=== PATIENT | male | born 1960 | race Asian ===

== ENCOUNTER 2020-12-28 15:06 | Outpatient (REF) | payer SELFPAY ==
[2020-12-28 16:22] LABS: Abs Immature Grans 0.02 10^3/uL (0.0-0.06); Absolute Basophil Count 0.03 10^3/uL (0.0-0.2); Absolute Eosinophil Count 0.07 10^3/uL (0.0-0.7); Absolute Lymphocyte Count 0.87 10^3/uL (1.2-3.4); Absolute Monocyte Count 0.53 10^3/uL (0.1-0.8); Absolute Neutrophil Count 4.43 10^3/uL (1.2-6.7); Basophils % 0.5; Eosinophils % 1.2; HCT 39.8 % (40.0-50.0); HGB 13.5 g/dL (13.5-17.5); Immature Grans % 0.3; Lymphocytes % 14.6; MCH 31.8 pg (27.0-33.0); MCHC 33.9 % (32.0-36.0); MCV 93.9 fL (80-95); MPV 10.9 fL (8.0-11.0); Monocytes % 8.9; Neutrophils % 74.5; Nucleated RBC 0 %; Platelet Count 261 10^3/uL (130-400); RBC 4.24 10^6/uL (4.36-5.78); RDW 11.6 % (11.8-14.1); RDW-SD 39.8 fL; WBC 5.95 10^3/uL (4.4-10.8)
[2020-12-28 17:37] LABS: ALT 35 U/L (16-63); AST 23 U/L (15-37); Albumin 3.8 g/dL (3.4-5.0); Alkaline Phosphatase 89 U/L (46-116); Anion Gap 10.6 mmol/L (3-11); BUN 13 mg/dL (7-18); Bilirubin, Total 0.5 mg/dL (0.2-1.0); CO2 26.4 mmol/L (21.0-32.0); CREATININE 0.8 mg/dL (0.70-1.30); Calcium 8.7 mg/dL (8.5-10.1); Calculated LDL 116 mg/dL (<100); Chloride 95 mmol/L (98-107); Cholesterol 168 mg/dL (<200); Glucose 114 mg/dL (74-106); HDL Cholesterol 40 mg/dL (40-60); Potassium 5.5 mmol/L (3.5-5.1); Sodium 132 mmol/L (136-145); Total Protein 7.2 g/dL (6.4-8.2); Triglyceride 63 mg/dL (<150)
[2020-12-28 19:15] LABS: Hemoglobin A1C 5.7 % (<5.7)
[2020-12-29 17:45] LABS: PSA, Screening 0.3 ng/mL (0.0-3.5)
== END 2020-12-28 15:07 | disposition home or self-care (01) ==
LOC: NCHCN 15:06
PROVIDERS: Visit Provider Nurse Practitioner Family
DX: Z00.8 Encounter for other general examination (principal)
CPT/HCPCS: 80053; 80061; 84153; 83036; 85025

== ENCOUNTER 2022-11-23 10:46 | Outpatient (REF) | payer SELFPAY ==
[2022-11-23 12:55] LABS: Abs Immature Grans 0.02 10^3/uL (0.0-0.06); Absolute Eosinophil Count 0.23 10^3/uL (0.0-0.7); Absolute Lymphocyte Count 1.97 10^3/uL (1.2-3.4); Basophils % 1.7; HCT 42.2 % (40.0-50.0); HGB 14.3 g/dL (13.5-17.5); Immature Grans % 0.3; Lymphocytes % 33.8; MCH 31.6 pg (27.0-33.0); MCHC 33.9 % (32.0-36.0); MCV 93 fL (80-95); MPV 10.7 fL (8.0-11.0); Monocytes % 6.9; Neutrophils % 53.3; Platelet Count 264 10^3/uL (130-400); RBC 4.52 10^6/uL (4.36-5.78); RDW 12.6 % (11.8-14.1); RDW-SD 43.5 fL; WBC 5.82 10^3/uL (4.4-10.8)
[2022-11-23 13:15] LABS: Hemoglobin A1C 5.8 % (<5.7)
[2022-11-23 13:58] LABS: ALT 30 U/L (16-63); AST 20 U/L (15-37); Albumin 4.5 g/dL (3.4-5.0); Alkaline Phosphatase 64 U/L (46-116); Anion Gap 7.4 mmol/L (3-11); BUN 11 mg/dL (7-18); Bilirubin, Total 0.7 mg/dL (0.2-1.0); CO2 28.6 mmol/L (21.0-32.0); CREATININE 0.9 mg/dL (0.70-1.30); Calcium 9.5 mg/dL (8.5-10.1); Calculated LDL 155 mg/dL (<100); Chloride 102 mmol/L (98-107); Cholesterol 248 mg/dL (<200); Estimated GFR 97.17 (mL/min/1.73m2); Glucose 108 mg/dL (74-106); HDL Cholesterol 73 mg/dL (40-60); Potassium 4.6 mmol/L (3.5-5.1); Sodium 138 mmol/L (136-145); Total Protein 7.8 g/dL (6.4-8.2); Triglyceride 102 mg/dL (<150); Vitamin B12 572 pg/mL (193-986)
== END 2022-11-23 10:47 | disposition home or self-care (01) ==
LOC: LBN 10:46
PROVIDERS: Visit Provider Nurse Practitioner Family
DX: R73.9 Hyperglycemia, unspecified (principal)
CPT/HCPCS: 80053; 80061; 82607; 83036; 85025

== ENCOUNTER 2023-08-04 10:43 | Outpatient (REF) | payer SELFPAY ==
[2023-08-04 13:58] LABS: Abs Immature Grans 0.01 10^3/uL (0.0-0.06); Absolute Basophil Count 0.09 10^3/uL (0.0-0.2); Absolute Eosinophil Count 0.24 10^3/uL (0.0-0.7); Absolute Lymphocyte Count 2.06 10^3/uL (1.2-3.4); Absolute Neutrophil Count 2.61 10^3/uL (1.2-6.7); Basophils % 1.7 %; Eosinophils % 4.4 %; HCT 39.7 % (40.0-50.0); HGB 13.6 g/dL (13.5-17.5); Immature Grans % 0.2 %; Lymphocytes % 38.1 %; MCH 31.3 pg (27.0-33.0); MCHC 34.3 % (32.0-36.0); MCV 92 fL (80-95); MPV 10.7 fL (8.0-11.0); Monocytes % 7.4 %; Neutrophils % 48.2 %; Platelet Count 259 10^3/uL (130-400); RBC 4.34 10^6/uL (4.36-5.78); RDW 13.2 % (11.8-14.1); WBC 5.41 10^3/uL (4.4-10.8)
[2023-08-04 14:25] LABS: Hemoglobin A1C 6.1 % (<5.7)
[2023-08-04 15:31] LABS: ALT 33 U/L (16-63); AST 29 U/L (15-37); Alkaline Phosphatase 69 U/L (46-116); Anion Gap 7.6 mmol/L (3-11); BUN 8 mg/dL (7-18); Bilirubin, Total 0.49 mg/dL (0.2-1.0); CO2 28.4 mmol/L (21.0-32.0); CREATININE 0.8 mg/dL (0.70-1.30); Calcium 9.2 mg/dL (8.5-10.1); Calculated LDL 129 mg/dL (<100); Chloride 102 mmol/L (98-107); Cholesterol 208 mg/dL (<200); Estimated GFR 100.06 (mL/min/1.73m2); Glucose 109 mg/dL (74-106); HDL Cholesterol 65 mg/dL (40-60); Potassium 4.7 mmol/L (3.5-5.1); Sodium 138 mmol/L (136-145); Total Protein 7.5 g/dL (6.4-8.2); Triglyceride 72 mg/dL (<150)
== END 2023-08-04 10:44 | disposition home or self-care (01) ==
LOC: LBN 10:43
PROVIDERS: Visit Provider Nurse Practitioner Family
DX: Z00.00 Encounter for general adult medical examination without abnormal findings (principal); Z13.220 Encounter for screening for lipoid disorders; Z13.1 Encounter for screening for diabetes mellitus; Z13.0 Encounter for screening for diseases of the blood and blood-forming organs and certain disorders involving the immune mechanism
CPT/HCPCS: 80053; 80061; 83036; 85025